=== PATIENT | female | born 1950 ===

== ENCOUNTER 2021-08-16 06:53 | Day surgery (SDC) | payer OTHER | END 2021-08-16 11:50 | disposition home or self-care (01) | LOC: AMB-ENDOS 06:53 | PROVIDERS: ATTEND Surgery | DX: D12.0 Benign neoplasm of cecum (principal); Z20.822 Contact with and (suspected) exposure to COVID-19; R15.9 Full incontinence of feces; E03.9 Hypothyroidism, unspecified; E11.9 Type 2 diabetes mellitus without complications; E78.5 Hyperlipidemia, unspecified ==